=== PATIENT | male | born 1945 | race Caucasian/White ===

== ENCOUNTER 2020-11-29 10:07 | Inpatient (IN) | payer MEDICARE ==
[2020-11-29] MEDS ORDERED: Sodium Chloride 0.9% 1000 ML 1,000 ML IV STA (10:22)
--- NOTE | 2020-11-29 10:27 | ERPHSYRPT ---
- History of Present Illness Time Seen by Provider: 11/29/20 10:21 Patient Subjective Stated Complaint: Pt states "My legs are weak and I spent all day yesterday and all night on the floor." Triage Nursing Assessment: Pt presented alert and oriented X 3, Pt able to speak in clear full sentences pt has pain in his left knee, no swelling noted. Pt resting comfortably on the bed. PT has dirty clothes on, dirt in his sock, dirt coming out from inside his boots. PT smells of body odor. Physician History: 75 years old male is brought in the ER by EMS with chief complaint of multiple falls where his legs gave away because of knee pain and since yesterday having generalized weakness and fatigue. Patient report he was too weak to get up from chair and slowly slid down on the floor and spent all day yesterday and night on the floor because he was not able to get up. Patient reports not hitting his head, no loss of consciousness. He denies any chest pain palpitations or shortness of breath. Denies any abdominal pain nausea or vomiting. Denies any focal numbness tingling or weakness. He has a chronic knee pain which is worsening on the right side but no new trauma to the knee or swelling. Patient blood sugar was 113 and blood pressure 89 systolic on presentation. Allergies/Adverse Reactions: No Known Drug Allergies Allergy (Verified 11/29/20 10:23) Hx Tetanus, Diphtheria Vaccination/Date Given: No Hx Influenza Vaccination/Date Given: No Hx Pneumococcal Vaccination/Date Given: No Immunizations Up to Date: Yes Travel Risk - International Travel Have you traveled outside of the country in past 3 weeks: No - Coronavirus Screening Are you exhibiting any of the following symptoms?: No Close contact with a COVID-19 positive Pt in past 14-21 Days: No - Vaccine Status Have you recieved a Covid-19 vaccination: No - Review of Systems Constitutional: Fatigue, Weakness Eyes: No Symptoms Ears, Nose, & Throat: No Symptoms Respiratory: No Symptoms Cardiac: No Symptoms Abdominal/Gastrointestinal: No Symptoms Genitourinary Symptoms: No Symptoms Musculoskeletal: Joint Pain Skin: No Symptoms Neurological: No Symptoms Psychological: No Symptoms Endocrine: No Symptoms Hematologic/Lymphatic: No Symptoms Immunological/Allergic: No Symptoms - Past Medical History Pertinent Past Medical History: Yes Neurological History: No Pertinent History ENT History: No Pertinent History Cardiac History: Hypertension Respiratory History: No Pertinent History Endocrine Medical History: Hypoglycemia Musculoskeletal History: Arthritis GI Medical History: No Pertinent History History: No Pertinent History Psycho-Social History: No Pertinent History Male Reproductive Disorders: No Pertinent History - Past Surgical History Past Surgical History: Yes Other Surgical History: right knee surgery - Social History Smoking Status: Never smoker Exposure to second hand smoke: No Drug Use: none Patient Lives Alone: Yes - Nursing Vital Signs Nursing Vital Signs: Initial Vital Signs Temperature 97.9 F 11/29/20 10:10 Pulse Rate 98 H 11/29/20 10:10 Respiratory Rate 20 11/29/20 10:10 Blood Pressure 89/71 11/29/20 10:10 O2 Sat by Pulse Oximetry 95 11/29/20 10:10 Pain Scale Pain Intensity 0 - Physical Exam General Appearance: no apparent distress, alert Eye Exam: PERRL/EOMI, eyes nml inspection Ears, Nose, Throat Exam: normal ENT inspection, TMs normal, pharynx normal Neck Exam: normal inspection, non-tender, full range of motion Respiratory Exam: normal breath sounds, lungs clear Cardiovascular Exam: regular rate/rhythm, normal heart sounds Gastrointestinal/Abdomen Exam: soft, normal bowel sounds, No tenderness Back Exam: normal inspection, normal range of motion Extremity Exam: normal inspection, normal range of motion, pelvis stable Neurologic Exam: alert, oriented x 3, cooperative, information officer II-XII nml as tested, normal mood/affect, nml cerebellar function, sensation nml, No motor deficits Skin Exam: normal color SpO2 Interpretation: normal SpO2: 95 O2 Delivery: Room Air - Course EKG Interpreted by Me: RATE (104), Sinus Tach, NORMAL AXIS, LAFB, Right Bundle Branch Block Ordered Tests: Active Orders 24 hr Category Date Time Status [employer] STAT Care 11/29/20 10:23 Active EKG-ER Only STAT Care 11/29/20 10:22 Active IV Insertion STAT Care 11/29/20 10:22 Active CHEST 1 VIEW (PORTABLE) Stat Exams 11/29/20 10:23 Completed BLOOD CULTURE Stat Lab 11/29/20 10:30 Received CBC W DIFF Stat Lab 11/29/20 10:30 Completed CK-Creatinine Phosphokinase Stat Lab 11/29/20 10:30 Completed CMP Stat Lab 11/29/20 10:30 Completed Lactic Acid Stat Lab 11/29/20 10:40 Completed Lactic Acid Stat Lab 11/29/20 12:43 Completed MAGNESIUM Stat Lab 11/29/20 10:30 Completed NT PRO BNP Stat Lab 11/29/20 10:30 Completed TROPONIN Q3H Lab 11/29/20 10:30 Completed TROPONIN Q3H Lab 11/29/20 13:02 Completed TROPONIN Q3H Lab 11/29/20 16:30 Ordered TROPONIN Q3H Lab 11/29/20 19:30 Ordered TROPONIN Q3H Lab 11/29/20 22:30 Ordered UA W/RFX UR CULTURE Stat Lab 11/29/20 12:35 Completed Transfer Order Routine Transfer 11/29/20 Ordered Medication Summary Generic Name Dose Route Start Last Admin Trade Name Sean PRN Reason Stop Dose Admin Remdesivir 200 mg/ Sodium 250 mls @ 125 mls/hr 11/29/20 14:25 Chloride IV 11/29/20 16:24 ONCE ONE Azithromycin 500 mg in 250 mls @ 250 mls/hr 11/29/20 14:27 Zithromax 500 Mg/ 250 Ml Nacl Premix IV 11/29/20 15:26 STAT STA Ceftriaxone Sodium/Dextrose 2 g in 50 mls @ 100 mls/hr 11/29/20 14:27 Rocephin 2 Gm-D5w 50ml Bag IV 11/29/20 14:56 STAT STA Discontinued Medications Generic Name Dose Route Start Last Admin Trade Name Sean PRN Reason Stop Dose Admin Dexamethasone Sodium Phosphate 6 mg 11/29/20 14:26 Decadron 10mg Inj. IV 11/29/20 14:27 STAT ONE Dexamethasone Sodium Phosphate Confirm 11/29/20 14:42 Decadron 10mg Inj. Administered 11/29/20 14:43 Dose 10 mg .ROUTE .STK-MED ONE Sodium Chloride 1,000 mls @ 999 mls/hr 11/29/20 10:22 11/29/20 12:17 Sodium Chloride 0.9% 1000 Ml IV 11/29/20 11:22 Infused .Q1H1M STA Infusion Sodium Chloride Confirm 11/29/20 10:54 Sodium Chloride 0.9% 1000 Ml Administered 11/29/20 10:55 Dose 1,000 mls @ ud .ROUTE .STK-MED ONE Ceftriaxone Sodium/Dextrose Confirm 11/29/20 14:42 Rocephin 2 Gm-D5w 50ml Bag Administered 11/29/20 14:43 Dose 2 g in 50 mls @ ud IV .STK-MED ONE Lab/Rad Data: Laboratory Result Diagrams 11/29/20 10:30 11/29/20 10:30 Laboratory Results 11/29/20 11/29/20 11/29/20 Range/Units 13:12 13:02 12:43 WBC (4.0-10.5) K/mm3 RBC (4.1-5.6) M/mm3 Hgb (12.5-18.0) gm/dl Hct (42-50) % MCV (78-100) fl MCH (26-32) pg MCHC (32-36) g/dl RDW (11.5-14.0) % Plt Count (150-450) K/mm3 MPV (7.5-11.0) fl Gran % (36.0-66.0) % Eos # (Auto) (0-0.5) Absolute Lymphs (auto) (1.0-4.6) Absolute Monos (auto) (0.0-1.3) Lymphocytes % (24.0-44.0) % Monocytes % (0.0-12.0) % Eosinophils % (0.00-5.0) % Basophils % (0.0-0.4) % Absolute Granulocytes (1.4-6.9) Basophils # (0-0.4) Sodium (137-145) mmol/L Potassium (3.5-5.1) mmol/L Chloride (98-107) mmol/L Carbon Dioxide (22-30) mmol/L Anion Gap (5-15) MEQ/L BUN (9-20) mg/dL Creatinine (0.66-1.25) mg/dL Estimated GFR ML/MIN Glucose (74-106) mg/dL Lactic Acid 1.7 (0.4-2.0) Calcium (8.4-10.2) mg/dL Magnesium (1.6-2.3) mg/dL Total Bilirubin (0.2-1.3) mg/dL AST (17-59) U/L ALT (0-50) U/L Alkaline Phosphatase (38-126) U/L Creatine Kinase (55-170) U/L Troponin I 0.020 (0.000-0.034) ng/mL NT-Pro-B Natriuret Pep (0-1800) pg/mL Serum Total Protein (6.3-8.2) g/dL Albumin (3.5-5.0) g/dL Urine Color (YELLOW) Urine Appearance (CLEAR) Urine pH (5-6) Ur Specific [place] (1.005-1.025) Urine Protein (Negative) Urine Ketones (NEGATIVE) Urine Blood (0-5) Bucky/ul Urine Nitrite (NEGATIVE) Urine Bilirubin (NEGATIVE) Urine Urobilinogen (0-1) mg/dL Ur Leukocyte Esterase (NEGATIVE) Urine WBC (Auto) (0-5) /HPF Urine RBC (Auto) (0-2) /HPF U Epithel Cells (Auto) (FEW) /HPF Urine Bacteria (Auto) (NEGATIVE) /HPF Urine Mucus (Auto) (NEGATIVE) /HPF Urine Culture Reflexed (NO) Urine Glucose (NEGATIVE) mg/dL SARS-CoV-2 (PCR) POSITIVE A (NEGATIVE) 11/29/20 11/29/20 11/29/20 Range/Units 12:35 10:40 10:30 WBC (4.0-10.5) K/mm3 RBC (4.1-5.6) M/mm3 Hgb (12.5-18.0) gm/dl Hct (42-50) % MCV (78-100) fl MCH (26-32) pg MCHC (32-36) g/dl RDW (11.5-14.0) % Plt Count (150-450) K/mm3 MPV (7.5-11.0) fl Gran % (36.0-66.0) % Eos # (Auto) (0-0.5) Absolute Lymphs (auto) (1.0-4.6) Absolute Monos (auto) (0.0-1.3) Lymphocytes % (24.0-44.0) % Monocytes % (0.0-12.0) % Eosinophils % (0.00-5.0) % Basophils % (0.0-0.4) % Absolute Granulocytes (1.4-6.9) Basophils # (0-0.4) Sodium (137-145) mmol/L Potassium (3.5-5.1) mmol/L Chloride (98-107) mmol/L Carbon Dioxide (22-30) mmol/L Anion Gap (5-15) MEQ/L BUN (9-20) mg/dL Creatinine (0.66-1.25) mg/dL Estimated GFR ML/MIN Glucose (74-106) mg/dL Lactic Acid 2.4 H (0.4-2.0) Calcium (8.4-10.2) mg/dL Magnesium (1.6-2.3) mg/dL Total Bilirubin (0.2-1.3) mg/dL AST (17-59) U/L ALT (0-50) U/L Alkaline Phosphatase (38-126) U/L Creatine Kinase (55-170) U/L Troponin I 0.021 (0.000-0.034) ng/mL NT-Pro-B Natriuret Pep (0-1800) pg/mL Serum Total Protein (6.3-8.2) g/dL Albumin (3.5-5.0) g/dL Urine Color MARYJANE (YELLOW) Urine Appearance SLIGHTLY CLOUDY (CLEAR) Urine pH 5.0 (5-6) Ur Specific [place] 1.027 (1.005-1.025) Urine Protein 30 (Negative) Urine Ketones SMALL (NEGATIVE) Urine Blood NEGATIVE (0-5) Bucky/ul Urine Nitrite NEGATIVE (NEGATIVE) Urine Bilirubin NEGATIVE (NEGATIVE) Urine Urobilinogen 4 (0-1) mg/dL Ur Leukocyte Esterase NEGATIVE (NEGATIVE) Urine WBC (Auto) NONE (0-5) /HPF Urine RBC (Auto) NONE (0-2) /HPF U Epithel Cells (Auto) NONE (FEW) /HPF Urine Bacteria (Auto) NONE (NEGATIVE) /HPF Urine Mucus (Auto) SLIGHT (NEGATIVE) /HPF Urine Culture Reflexed NO (NO) Urine Glucose NEGATIVE (NEGATIVE) mg/dL SARS-CoV-2 (PCR) (NEGATIVE) 11/29/20 11/29/20 11/29/20 Range/Units 10:30 10:30 10:30 WBC 7.8 (4.0-10.5) K/mm3 RBC 5.34 (4.1-5.6) M/mm3 Hgb 16.2 (12.5-18.0) gm/dl Hct 47.6 (42-50) % MCV 89.1 (78-100) fl MCH 30.3 (26-32) pg MCHC 34.0 (32-36) g/dl RDW 12.8 (11.5-14.0) % Plt Count 149 L (150-450) K/mm3 MPV 10.9 (7.5-11.0) fl Gran % 89.3 H (36.0-66.0) % Eos # (Auto) 0 (0-0.5) Absolute Lymphs (auto) 0.37 L (1.0-4.6) Absolute Monos (auto) 0.47 (0.0-1.3) Lymphocytes % 4.7 L (24.0-44.0) % Monocytes % 6.0 (0.0-12.0) % Eosinophils % 0.0 (0.00-5.0) % Basophils % 0.0 (0.0-0.4) % Absolute Granulocytes 6.95 H (1.4-6.9) Basophils # 0 (0-0.4) Sodium 143 (137-145) mmol/L Potassium 3.6 (3.5-5.1) mmol/L Chloride 104 (98-107) mmol/L Carbon Dioxide 23 (22-30) mmol/L Anion Gap 19.5 H (5-15) MEQ/L BUN 36 H (9-20) mg/dL Creatinine 1.21 (0.66-1.25) mg/dL Estimated GFR > 60.0 ML/MIN Glucose 100 (74-106) mg/dL Lactic Acid (0.4-2.0) Calcium 9.6 (8.4-10.2) mg/dL Magnesium 2.1 (1.6-2.3) mg/dL Total Bilirubin 1.40 H (0.2-1.3) mg/dL AST 82 H (17-59) U/L ALT 30 (0-50) U/L Alkaline Phosphatase 51 (38-126) U/L Creatine Kinase 1002 H (55-170) U/L Troponin I (0.000-0.034) ng/mL NT-Pro-B Natriuret Pep 1210 (0-1800) pg/mL Serum Total Protein 6.7 (6.3-8.2) g/dL Albumin 4.0 (3.5-5.0) g/dL Urine Color (YELLOW) Urine Appearance (CLEAR) Urine pH (5-6) Ur Specific [place] (1.005-1.025) Urine Protein (Negative) Urine Ketones (NEGATIVE) Urine Blood (0-5) Bucky/ul Urine Nitrite (NEGATIVE) Urine Bilirubin (NEGATIVE) Urine Urobilinogen (0-1) mg/dL Ur Leukocyte Esterase (NEGATIVE) Urine WBC (Auto) (0-5) /HPF Urine RBC (Auto) (0-2) /HPF U Epithel Cells (Auto) (FEW) /HPF Urine Bacteria (Auto) (NEGATIVE) /HPF Urine Mucus (Auto) (NEGATIVE) /HPF Urine Culture Reflexed (NO) Urine Glucose (NEGATIVE) mg/dL SARS-CoV-2 (PCR) (NEGATIVE) - Progress Progress: improved Progress Note: 11/29/20 12:47 75 years old is evaluated for generalized weakness and being on the floor for almost 24 hours. Patient was hypotensive on presentation, given a fluid bolus and improved to 119 systolic. He is not tachycardic or tachypneic. Chest x-ray showed left-sided opacity/infiltrative process, started on antibiotics. Normal white count. Has a CK level in 1000's with no acute renal failure. Patient has a lactate of 2.4 but no obvious focus of infection, urinalysis is pending. Discussed with , reviewed history, work-up and patient is accepted for admission. 11/29/20 14:45 Patient was initially admitted to , Covid 19 is positive, given a dose of Decadron and remdesivir. Patient would be admitted to Dr. Mejia. Discussed with : Salvador Will see patient in: hospital (observation) Counseled pt/family regarding: lab results, diagnosis, rad results - Departure Departure Disposition: Observation Clinical Impression: Generalized weakness, COVID-19 virus detected Rhabdomyolysis Qualifiers: Rhabdomyolysis type: non-traumatic Qualified Code(s): M62.82 - Rhabdomyolysis Pneumonia Qualifiers: Pneumonia type: due to unspecified organism Laterality: left Lung location: unspecified part of lung Qualified Code(s): J18.9 - Pneumonia, unspecified organism Condition: Stable Critical Care Time: No Referrals: EVERARDO SULTANA [Primary Care Provider] -
[2020-11-29 10:51] LABS: Absolute Neutrophil Ct (ANC) 6.95 (1.4-6.9); Basophil (Absolute #) 0 (0-0.4); Eosinophil (Absolute #) 0 (0-0.5); Hematocrit 47.6 % (42-50); Hemoglobin 16.2 gm/dl (12.5-18.0); Lymphocyte (Absolute #) 0.37 (1.0-4.6); Lymphocytes % 4.7 % (24.0-44.0); Mean Cell Volume 89.1 fl (78-100); Mean Corpuscular Hemoglobin 30.3 pg (26-32); Mean Platelet Volume 10.9 fl (7.5-11.0); Monocyte (Absolute #) 0.47 (0.0-1.3); Neutrophil % 89.3 % (36.0-66.0); Platelet Count 149 K/mm3 (150-450); Red Blood Count 5.34 M/mm3 (4.1-5.6); Red Cell Distribution Width 12.8 % (11.5-14.0); White Blood Count 7.8 K/mm3 (4.0-10.5)
[2020-11-29] MEDS ORDERED: Sodium Chloride 0.9% 1000 ML 1,000 ML ONE (10:54)
[2020-11-29 11:16] LABS: ALKALINE PHOSPHATASE 51 U/L (38-126); ANION GAP 19.5 MEQ/L (5-15); BLOOD UREA NITROGEN 36 mg/dL (9-20); CHLORIDE 104 mmol/L (98-107); CK-Creatinine Phosphokinase 1002 U/L (55-170); Calcium 9.6 mg/dL (8.4-10.2); Carbon Dioxide 23 mmol/L (22-30); Creatinine 1 1.21 mg/dL (0.66-1.25); EST GLOMERULAR FILTRATION RATE > 60.0 ML/MIN; Glucose 100 mg/dL (74-106); NT PRO BNP 1210 pg/mL (0-1800); Potassium 3.6 mmol/L (3.5-5.1); SGOT/AST 82 U/L (17-59); SGPT/ALT 30 U/L (0-50); SODIUM 143 mmol/L (137-145); Total Protein 6.7 g/dL (6.3-8.2)
--- NOTE | 2020-11-29 12:55 | XRAY ---
Indication: Unwitnessed fall. Found on floor. Comparison: December 15, 2007. Portable chest underinflated with new left lung patchy interstitial alveolar opacities. Remaining heart and right lung unremarkable. Bony thorax intact again with mild osteopenia and degenerative changes.
[2020-11-29 13:36] LABS: Appearance SLIGHTLY CLOUDY (CLEAR); Bilirubin NEGATIVE (NEGATIVE); Blood NEGATIVE Ery/ul (0-5); Glucose NEGATIVE (NEGATIVE); Ketones SMALL (NEGATIVE); Leukocyte Esterase NEGATIVE (NEGATIVE); Mucus SLIGHT /HPF (NEGATIVE); Nitrite NEGATIVE (NEGATIVE); Protein,Urine Dip 30 (Negative); Specific Gravity 1.027 (1.005-1.025); Urobilinogen 4 mg/dL (0-1)
[2020-11-29] MEDS ORDERED: REMDESIVIR 200 MG in Sodium Chloride 0.9% 250 ML 250 ML IV ONE ×2 (14:25→17:00)
[2020-11-29] MEDS ORDERED: DECADRON 10MG INJ. IV ONE (14:26)
[2020-11-29] MEDS ORDERED: ROCEPHIN 2 Gm-D5w 50ML BAG** 2 G/50 ML IVPB IV STA (14:27)
[2020-11-29] MEDS ORDERED: Zithromax 500 MG/ 250 ML NaCl Premix 500 MG/250 ML IVPB IV STA (14:27)
[2020-11-29] MEDS ORDERED: DECADRON 10MG INJ. ONE (14:42)
[2020-11-29] MEDS ORDERED: ROCEPHIN 2 Gm-D5w 50ML BAG** 2 G/50 ML IVPB IV ONE (14:42)
[2020-11-29 16:37] LABS: Slide Review 1 YES
[2020-11-29] MEDS: PROTONIX 40 MG IV IV SCH (17:31)
[2020-11-29] MEDS: Sodium Chloride 0.9% 1000 ML 1,000 ML IV SCH (17:32)
--- NOTE | 2020-11-29 18:36 | PCM.HP ---
History of Present Illness - Chief Complaint Chief Complaint: fall at home today History of Present Illness: is a 75 year old male.brought in the ER by EMS with chief complaint of multiple falls where his legs gave away because of knee pain and since yesterday having generalized weakness and fatigue. Patient report he was too weak to get up from chair and slowly slid down on the floor and spent all day yesterday and night on the floor because he was not able to get up. Patient reports not hitting his head, no loss of consciousness. He denies any chest pain palpitations or shortness of breath. Denies any abdominal pain nausea or vomiting. Denies any focal numbness tingling or weakness. He has a chronic knee pain which is worsening on the right side but no new trauma to the knee or swelling. Patient blood sugar was 113 and blood pressure 89 systolic on presentation. - Review of Systems Constitutional: Fatigue, Lethargy, Weakness, No Fever, No Chills Eyes: No Symptoms Ears, Nose, & Throat: No Symptoms Respiratory: No Cough, No Short Of Breath Cardiac: No Chest Pain, No Edema, No Syncope Abdominal/Gastrointestinal: No Abdominal Pain, No Nausea, No Vomiting, No Diarrhea Genitourinary Symptoms: No Dysuria Musculoskeletal: No Back Pain, No Neck Pain Skin: No Rash Neurological: No Dizziness, No Focal Weakness, No Sensory Changes Psychological: No Symptoms Endocrine: No Symptoms Hematologic/Lymphatic: Other (multiple bruises due to fall), No No Symptoms Immunological/Allergic: No Symptoms Medications & Allergies Home Medications: Home Medication List Chlorthalidone 25 mg PO DAILY 11/29/20 [History Confirmed 11/29/20] Lisinopril 5 mg [Zestril 5 MG] 5 mg PO DAILY 11/29/20 [History Confirmed 11/29/20] Potassium Chloride 10 Meq Tab* [Klor Con 10 MEQ] 20 meq PO DAILY 11/29/20 [History Confirmed 11/29/20] Simvastatin 20Mg [Zocor 20Mg] 20 mg PO DAILY 11/29/20 [History Confirmed 11/29/20] Tamsulosin HCl 0.4 mg [Flomax 0.4 MG] 0.4 mg PO DAILY 11/29/20 [History Confirmed 11/29/20] Allergies/Adverse Reactions: Allergies Allergy/AdvReac Type Severity Reaction Status Date / Time No Known Drug Allergies Allergy Verified 11/29/20 10:23 - Past Medical History Past Medical History: Yes Neurological History: No Pertinent History ENT History: No Pertinent History Cardiac History: Hypertension Respiratory History: No Pertinent History Endocrine Medical History: Hypoglycemia Musculoskelatal History: Arthritis GI Medical History: No Pertinent History History: No Pertinent History Pyscho-Social History: No Pertinent History Male Reproductive Disorders: No Pertinent History - Past Surgical History Past Surgical History: Yes Other Surgical History: right knee surgery - Social History Smoking Status: Never smoker Exposure to second hand smoke: No Alcohol: None Drug Use: none - Physical Exam Vital Signs: Vital Signs - 24 hr Temp Pulse Resp BP Pulse Ox 11/29/20 18:00 102 H 20 96 11/29/20 16:45 96.7 F 92 H 24 101/63 95 11/29/20 15:55 95 11/29/20 15:08 83 26 H 101/69 97 11/29/20 14:46 95 11/29/20 14:32 98 H 25 H 96/62 98 11/29/20 13:36 97.9 F 77 20 94/71 98 11/29/20 12:15 87 20 91/67 98 11/29/20 11:10 87 22 109/69 97 11/29/20 10:10 97.9 F 98 H 20 89/71 95 General Appearance: no apparent distress, alert Neurologic Exam: alert, oriented x 3, cooperative, normal mood/affect, nml cerebellar function, nml station & gait, sensation nml, No motor deficits Eye Exam: PERRL/EOMI, eyes nml inspection Ears, Nose, Throat Exam: normal ENT inspection, TMs normal, pharynx normal, moist mucous membranes Neck Exam: normal inspection, non-tender, supple, full range of motion Respiratory Exam: normal breath sounds, lungs clear, No respiratory distress Cardiovascular Exam: regular rate/rhythm, normal heart sounds, normal peripheral pulses Gastrointestinal/Abdomen Exam: soft, normal bowel sounds, No tenderness, No mass Back Exam: normal inspection, normal range of motion, No CVA tenderness, No vertebral tenderness Extremity Exam: normal inspection, normal range of motion, pelvis stable, contusions Skin Exam: normal color, warm, dry, ecchymosis, No rash Lymphatic Exam: No adenopathy Results - Labs Lab/Micro Results: Lab Results-Last 24 Hours 11/29/20 11/29/20 11/29/20 Range/Units 10:30 10:30 10:30 WBC 7.8 (4.0-10.5) K/mm3 RBC 5.34 (4.1-5.6) M/mm3 Hgb 16.2 (12.5-18.0) gm/dl Hct 47.6 (42-50) % MCV 89.1 (78-100) fl MCH 30.3 (26-32) pg MCHC 34.0 (32-36) g/dl RDW 12.8 (11.5-14.0) % Plt Count 149 L (150-450) K/mm3 MPV 10.9 (7.5-11.0) fl Gran % 89.3 H (36.0-66.0) % Eos # (Auto) 0 (0-0.5) Absolute Lymphs (auto) 0.37 L (1.0-4.6) Absolute Monos (auto) 0.47 (0.0-1.3) Lymphocytes % 4.7 L (24.0-44.0) % Monocytes % 6.0 (0.0-12.0) % Eosinophils % 0.0 (0.00-5.0) % Basophils % 0.0 (0.0-0.4) % Absolute Granulocytes 6.95 H (1.4-6.9) Basophils # 0 (0-0.4) Sodium 143 (137-145) mmol/L Potassium 3.6 (3.5-5.1) mmol/L Chloride 104 (98-107) mmol/L Carbon Dioxide 23 (22-30) mmol/L Anion Gap 19.5 H (5-15) MEQ/L BUN 36 H (9-20) mg/dL Creatinine 1.21 (0.66-1.25) mg/dL Estimated GFR > 60.0 ML/MIN Glucose 100 (74-106) mg/dL Lactic Acid (0.4-2.0) Calcium 9.6 (8.4-10.2) mg/dL Magnesium 2.1 (1.6-2.3) mg/dL Total Bilirubin 1.40 H (0.2-1.3) mg/dL AST 82 H (17-59) U/L ALT 30 (0-50) U/L Alkaline Phosphatase 51 (38-126) U/L Creatine Kinase 1002 H (55-170) U/L Troponin I (0.000-0.034) ng/mL NT-Pro-B Natriuret Pep 1210 (0-1800) pg/mL Serum Total Protein 6.7 (6.3-8.2) g/dL Albumin 4.0 (3.5-5.0) g/dL Urine Color (YELLOW) Urine Appearance (CLEAR) Urine pH (5-6) Ur Specific [place] (1.005-1.025) Urine Protein (Negative) Urine Ketones (NEGATIVE) Urine Blood (0-5) Bucky/ul Urine Nitrite (NEGATIVE) Urine Bilirubin (NEGATIVE) Urine Urobilinogen (0-1) mg/dL Ur Leukocyte Esterase (NEGATIVE) Urine WBC (Auto) (0-5) /HPF Urine RBC (Auto) (0-2) /HPF U Epithel Cells (Auto) (FEW) /HPF Urine Bacteria (Auto) (NEGATIVE) /HPF Urine Mucus (Auto) (NEGATIVE) /HPF Urine Culture Reflexed (NO) Urine Glucose (NEGATIVE) mg/dL SARS-CoV-2 (PCR) (NEGATIVE) Slides for Path Review YES 11/29/20 11/29/20 11/29/20 Range/Units 10:30 10:40 12:35 WBC (4.0-10.5) K/mm3 RBC (4.1-5.6) M/mm3 Hgb (12.5-18.0) gm/dl Hct (42-50) % MCV (78-100) fl MCH (26-32) pg MCHC (32-36) g/dl RDW (11.5-14.0) % Plt Count (150-450) K/mm3 MPV (7.5-11.0) fl Gran % (36.0-66.0) % Eos # (Auto) (0-0.5) Absolute Lymphs (auto) (1.0-4.6) Absolute Monos (auto) (0.0-1.3) Lymphocytes % (24.0-44.0) % Monocytes % (0.0-12.0) % Eosinophils % (0.00-5.0) % Basophils % (0.0-0.4) % Absolute Granulocytes (1.4-6.9) Basophils # (0-0.4) Sodium (137-145) mmol/L Potassium (3.5-5.1) mmol/L Chloride (98-107) mmol/L Carbon Dioxide (22-30) mmol/L Anion Gap (5-15) MEQ/L BUN (9-20) mg/dL Creatinine (0.66-1.25) mg/dL Estimated GFR ML/MIN Glucose (74-106) mg/dL Lactic Acid 2.4 H (0.4-2.0) Calcium (8.4-10.2) mg/dL Magnesium (1.6-2.3) mg/dL Total Bilirubin (0.2-1.3) mg/dL AST (17-59) U/L ALT (0-50) U/L Alkaline Phosphatase (38-126) U/L Creatine Kinase (55-170) U/L Troponin I 0.021 (0.000-0.034) ng/mL NT-Pro-B Natriuret Pep (0-1800) pg/mL Serum Total Protein (6.3-8.2) g/dL Albumin (3.5-5.0) g/dL Urine Color MARYJANE (YELLOW) Urine Appearance SLIGHTLY CLOUDY (CLEAR) Urine pH 5.0 (5-6) Ur Specific [place] 1.027 (1.005-1.025) Urine Protein 30 (Negative) Urine Ketones SMALL (NEGATIVE) Urine Blood NEGATIVE (0-5) Bucky/ul Urine Nitrite NEGATIVE (NEGATIVE) Urine Bilirubin NEGATIVE (NEGATIVE) Urine Urobilinogen 4 (0-1) mg/dL Ur Leukocyte Esterase NEGATIVE (NEGATIVE) Urine WBC (Auto) NONE (0-5) /HPF Urine RBC (Auto) NONE (0-2) /HPF U Epithel Cells (Auto) NONE (FEW) /HPF Urine Bacteria (Auto) NONE (NEGATIVE) /HPF Urine Mucus (Auto) SLIGHT (NEGATIVE) /HPF Urine Culture Reflexed NO (NO) Urine Glucose NEGATIVE (NEGATIVE) mg/dL SARS-CoV-2 (PCR) (NEGATIVE) Slides for Path Review 11/29/20 11/29/20 11/29/20 Range/Units 12:43 13:02 13:12 WBC (4.0-10.5) K/mm3 RBC (4.1-5.6) M/mm3 Hgb (12.5-18.0) gm/dl Hct (42-50) % MCV (78-100) fl MCH (26-32) pg MCHC (32-36) g/dl RDW (11.5-14.0) % Plt Count (150-450) K/mm3 MPV (7.5-11.0) fl Gran % (36.0-66.0) % Eos # (Auto) (0-0.5) Absolute Lymphs (auto) (1.0-4.6) Absolute Monos (auto) (0.0-1.3) Lymphocytes % (24.0-44.0) % Monocytes % (0.0-12.0) % Eosinophils % (0.00-5.0) % Basophils % (0.0-0.4) % Absolute Granulocytes (1.4-6.9) Basophils # (0-0.4) Sodium (137-145) mmol/L Potassium (3.5-5.1) mmol/L Chloride (98-107) mmol/L Carbon Dioxide (22-30) mmol/L Anion Gap (5-15) MEQ/L BUN (9-20) mg/dL Creatinine (0.66-1.25) mg/dL Estimated GFR ML/MIN Glucose (74-106) mg/dL Lactic Acid 1.7 (0.4-2.0) Calcium (8.4-10.2) mg/dL Magnesium (1.6-2.3) mg/dL Total Bilirubin (0.2-1.3) mg/dL AST (17-59) U/L ALT (0-50) U/L Alkaline Phosphatase (38-126) U/L Creatine Kinase (55-170) U/L Troponin I 0.020 (0.000-0.034) ng/mL NT-Pro-B Natriuret Pep (0-1800) pg/mL Serum Total Protein (6.3-8.2) g/dL Albumin (3.5-5.0) g/dL Urine Color (YELLOW) Urine Appearance (CLEAR) Urine pH (5-6) Ur Specific [place] (1.005-1.025) Urine Protein (Negative) Urine Ketones (NEGATIVE) Urine Blood (0-5) Bucky/ul Urine Nitrite (NEGATIVE) Urine Bilirubin (NEGATIVE) Urine Urobilinogen (0-1) mg/dL Ur Leukocyte Esterase (NEGATIVE) Urine WBC (Auto) (0-5) /HPF Urine RBC (Auto) (0-2) /HPF U Epithel Cells (Auto) (FEW) /HPF Urine Bacteria (Auto) (NEGATIVE) /HPF Urine Mucus (Auto) (NEGATIVE) /HPF Urine Culture Reflexed (NO) Urine Glucose (NEGATIVE) mg/dL SARS-CoV-2 (PCR) POSITIVE A (NEGATIVE) Slides for Path Review 11/29/20 Range/Units 16:20 WBC (4.0-10.5) K/mm3 RBC (4.1-5.6) M/mm3 Hgb (12.5-18.0) gm/dl Hct (42-50) % MCV (78-100) fl MCH (26-32) pg MCHC (32-36) g/dl RDW (11.5-14.0) % Plt Count (150-450) K/mm3 MPV (7.5-11.0) fl Gran % (36.0-66.0) % Eos # (Auto) (0-0.5) Absolute Lymphs (auto) (1.0-4.6) Absolute Monos (auto) (0.0-1.3) Lymphocytes % (24.0-44.0) % Monocytes % (0.0-12.0) % Eosinophils % (0.00-5.0) % Basophils % (0.0-0.4) % Absolute Granulocytes (1.4-6.9) Basophils # (0-0.4) Sodium (137-145) mmol/L Potassium (3.5-5.1) mmol/L Chloride (98-107) mmol/L Carbon Dioxide (22-30) mmol/L Anion Gap (5-15) MEQ/L BUN (9-20) mg/dL Creatinine (0.66-1.25) mg/dL Estimated GFR ML/MIN Glucose (74-106) mg/dL Lactic Acid (0.4-2.0) Calcium (8.4-10.2) mg/dL Magnesium (1.6-2.3) mg/dL Total Bilirubin (0.2-1.3) mg/dL AST (17-59) U/L ALT (0-50) U/L Alkaline Phosphatase (38-126) U/L Creatine Kinase (55-170) U/L Troponin I 0.018 (0.000-0.034) ng/mL NT-Pro-B Natriuret Pep (0-1800) pg/mL Serum Total Protein (6.3-8.2) g/dL Albumin (3.5-5.0) g/dL Urine Color (YELLOW) Urine Appearance (CLEAR) Urine pH (5-6) Ur Specific [place] (1.005-1.025) Urine Protein (Negative) Urine Ketones (NEGATIVE) Urine Blood (0-5) Bucky/ul Urine Nitrite (NEGATIVE) Urine Bilirubin (NEGATIVE) Urine Urobilinogen (0-1) mg/dL Ur Leukocyte Esterase (NEGATIVE) Urine WBC (Auto) (0-5) /HPF Urine RBC (Auto) (0-2) /HPF U Epithel Cells (Auto) (FEW) /HPF Urine Bacteria (Auto) (NEGATIVE) /HPF Urine Mucus (Auto) (NEGATIVE) /HPF Urine Culture Reflexed (NO) Urine Glucose (NEGATIVE) mg/dL SARS-CoV-2 (PCR) (NEGATIVE) Slides for Path Review - Radiology Impressions Radiology Exams & Impressions: Radiology Procedures Category Date Time Status CHEST 1 VIEW (PORTABLE) Stat Exams 11/29/20 10:23 Completed Assessment/Plan (1) Rhabdomyolysis Current Visit: Yes Status: Acute Qualifiers: Rhabdomyolysis type: non-traumatic Qualified Code(s): M62.82 - Rhabdomyolysis Code(s): M62.82 - RHABDOMYOLYSIS (2) COVID-19 virus detected Current Visit: Yes Status: Acute Code(s): U07.1 - COVID-19 (3) Generalized weakness Current Visit: Yes Status: Acute Code(s): R53.1 - WEAKNESS (4) Pneumonia Current Visit: Yes Status: Acute Qualifiers: Pneumonia type: due to unspecified organism Laterality: left Lung location: unspecified part of lung Qualified Code(s): J18.9 - Pneumonia, unspecified organism Assessment & Plan: Chief Complaint Diagnosis fall at home today Allergies Allergy/AdvReac Type Severity Reaction Status Date / Time No Known Drug Allergies Allergy Verified 11/29/20 10:23 Vital Signs (Last 24 hours) Temp Pulse Resp BP Pulse Ox 11/29/20 18:00 102 H 20 96 11/29/20 16:45 96.7 F 92 H 24 101/63 95 11/29/20 15:55 95 11/29/20 15:08 83 26 H 101/69 97 11/29/20 14:46 95 11/29/20 14:32 98 H 25 H 96/62 98 11/29/20 13:36 97.9 F 77 20 94/71 98 11/29/20 12:15 87 20 91/67 98 11/29/20 11:10 87 22 109/69 97 11/29/20 10:10 97.9 F 98 H 20 89/71 95 Home Medications Medication Instructions Recorded Confirmed Last Taken Type Chlorthalidone 25 mg PO DAILY 11/29/20 11/29/20 11/28/20 History Lisinopril 5 mg [Zestril 5 5 mg PO DAILY 11/29/20 11/29/20 11/28/20 History MG] Potassium Chloride 10 Meq Tab* 20 meq PO DAILY 11/29/20 11/29/20 11/28/20 History [Klor Con 10 MEQ] Simvastatin 20Mg [Zocor 20Mg] 20 mg PO DAILY 11/29/20 11/29/20 11/28/20 History Tamsulosin HCl 0.4 mg [Flomax 0.4 mg PO DAILY 11/29/20 11/29/20 11/28/20 History 0.4 MG] Current Medications Generic Name Dose Route Start Last Admin Trade Name Freq PRN Reason Stop Dose Admin Acetaminophen 650 mg 11/29/20 15:43 Tylenol 325 Mg PO 12/29/20 15:42 Q4H PRN PRN PAIN AND/OR FEVER Hydrochlorothiazide 25 mg 11/30/20 10:00 Hydrodiuril 25 Mg PO 12/30/20 09:59 DAILY G[place] Sodium Chloride 1,000 mls @ 125 mls/hr 11/29/20 15:43 11/29/20 17:32 Sodium Chloride 0.9% 1000 Ml IV 12/29/20 15:42 125 mls/hr .Q8H [place] Administration Remdesivir 200 mg/ Sodium 250 mls @ 125 mls/hr 11/29/20 17:00 11/29/20 17:29 Chloride IV 11/29/20 18:59 125 mls/hr ONCE ONE Administration Remdesivir 100 mg/ Sodium 100 mls @ 100 mls/hr 11/30/20 14:00 Chloride IV 12/03/20 14:59 Q24H [place] Lisinopril 5 mg 11/30/20 10:00 Zestril 5 Mg PO 12/30/20 09:59 DAILY [place] Methylprednisolone Sodium Succinate 40 mg 11/30/20 18:30 Solu-Medrol 40 Mg IV 12/30/20 18:29 Q8H [place] Pantoprazole Sodium 40 mg 11/29/20 16:00 11/29/20 17:31 Protonix 40 Mg Iv IV 12/29/20 15:59 40 mg Q24H10 [place] Administration Potassium Chloride 20 meq 11/30/20 10:00 Klor Con 10 Meq PO 12/30/20 09:59 DAILY [place] Simvastatin 20 mg 11/30/20 10:00 Zocor 20mg PO 12/30/20 09:59 DAILY [place] Tamsulosin HCl 0.4 mg 11/30/20 10:00 Flomax 0.4 Mg PO 12/30/20 09:59 DAILY [place] Discontinued Medications Generic Name Dose Route Start Last Admin Trade Name Freq PRN Reason Stop Dose Admin Dexamethasone Sodium Phosphate 6 mg 11/29/20 14:26 11/29/20 14:45 Decadron 10mg Inj. IV 11/29/20 14:27 6 mg STAT ONE Administration Dexamethasone Sodium Phosphate Confirm 11/29/20 14:42 Decadron 10mg Inj. Administered 11/29/20 14:43 Dose 10 mg .ROUTE .STK-MED ONE Sodium Chloride 1,000 mls @ 999 mls/hr 11/29/20 10:22 11/29/20 12:17 Sodium Chloride 0.9% 1000 Ml IV 11/29/20 11:22 Infused .Q1H1M STA Infusion Sodium Chloride Confirm 11/29/20 10:54 Sodium Chloride 0.9% 1000 Ml Administered 11/29/20 10:55 Dose 1,000 mls @ ud .ROUTE .STK-MED ONE Remdesivir 200 mg/ Sodium 250 mls @ 125 mls/hr 11/29/20 14:25 11/29/20 18:26 Chloride IV 11/29/20 16:24 Not Given ONCE ONE Azithromycin 500 mg in 250 mls @ 250 mls/hr 11/29/20 14:27 11/29/20 18:26 Zithromax 500 Mg/ 250 Ml Nacl Premix IV 11/29/20 15:26 Not Given STAT STA Ceftriaxone Sodium/Dextrose 2 g in 50 mls @ 100 mls/hr 11/29/20 14:27 11/29/20 15:21 Rocephin 2 Gm-D5w 50ml Bag IV 11/29/20 14:56 Infused STAT STA Infusion Ceftriaxone Sodium/Dextrose Confirm 11/29/20 14:42 Rocephin 2 Gm-D5w 50ml Bag Administered 11/29/20 14:43 Dose 2 g in 50 mls @ ud IV .STK-MED ONE Methylprednisolone Sodium Succinate 40 mg 11/30/20 18:16 Solu-Medrol 40 Mg IV 11/30/20 18:17 STAT ONE Intake & Output (Last 24 hours) 11/27/20 11/28/20 11/29/20 11/30/20 11:59 11:59 11:59 11:59 Intake Total 400 Output Total 100 Balance 300 Weight 96.9 kg 97 kg Microbiology Results (Last 24 hours) 11/29/20 10:30 Blood Blood Culture Gram Stain - Pending 11/29/20 10:30 Blood Blood Culture - Pending 11/29/20 10:30 Blood Blood Culture Gram Stain - Pending 11/29/20 10:30 Blood Blood Culture - Pending Laboratory Results (Last 24 hours) 11/29/20 11/29/20 11/29/20 16:20 13:12 13:02 WBC RBC Hgb Hct MCV MCH MCHC RDW Plt Count MPV Gran % Eos # (Auto) Absolute Lymphs (auto) Absolute Monos (auto) Lymphocytes % Monocytes % Eosinophils % Basophils % Absolute Granulocytes Basophils # Sodium Potassium Chloride Carbon Dioxide Anion Gap BUN Creatinine Estimated GFR Glucose Lactic Acid Calcium Magnesium Total Bilirubin AST ALT Alkaline Phosphatase Creatine Kinase Troponin I 0.018 0.020 NT-Pro-B Natriuret Pep Serum Total Protein Albumin Urine Color Urine Appearance Urine pH Ur Specific [place] Urine Protein Urine Ketones Urine Blood Urine Nitrite Urine Bilirubin Urine Urobilinogen Ur Leukocyte Esterase Urine WBC (Auto) Urine RBC (Auto) U Epithel Cells (Auto) Urine Bacteria (Auto) Urine Mucus (Auto) Urine Culture Reflexed Urine Glucose SARS-CoV-2 (PCR) POSITIVE A Slides for Path Review 11/29/20 11/29/20 11/29/20 12:43 12:35 10:40 WBC RBC Hgb Hct MCV MCH MCHC RDW Plt Count MPV Gran % Eos # (Auto) Absolute Lymphs (auto) Absolute Monos (auto) Lymphocytes % Monocytes % Eosinophils % Basophils % Absolute Granulocytes Basophils # Sodium Potassium Chloride Carbon Dioxide Anion Gap BUN Creatinine Estimated GFR Glucose Lactic Acid 1.7 2.4 H Calcium Magnesium Total Bilirubin AST ALT Alkaline Phosphatase Creatine Kinase Troponin I NT-Pro-B Natriuret Pep Serum Total Protein Albumin Urine Color MARYJANE Urine Appearance SLIGHTLY CLOUDY Urine pH 5.0 Ur Specific [place] 1.027 Urine Protein 30 Urine Ketones SMALL Urine Blood NEGATIVE Urine Nitrite NEGATIVE Urine Bilirubin NEGATIVE Urine Urobilinogen 4 Ur Leukocyte Esterase NEGATIVE Urine WBC (Auto) NONE Urine RBC (Auto) NONE U Epithel Cells (Auto) NONE Urine Bacteria (Auto) NONE Urine Mucus (Auto) SLIGHT Urine Culture Reflexed NO Urine Glucose NEGATIVE SARS-CoV-2 (PCR) Slides for Path Review 11/29/20 11/29/20 11/29/20 10:30 10:30 10:30 WBC RBC Hgb Hct MCV MCH MCHC RDW Plt Count MPV Gran % Eos # (Auto) Absolute Lymphs (auto) Absolute Monos (auto) Lymphocytes % Monocytes % Eosinophils % Basophils % Absolute Granulocytes Basophils # Sodium 143 Potassium 3.6 Chloride 104 Carbon Dioxide 23 Anion Gap 19.5 H BUN 36 H Creatinine 1.21 Estimated GFR > 60.0 Glucose 100 Lactic Acid Calcium 9.6 Magnesium 2.1 Total Bilirubin 1.40 H AST 82 H ALT 30 Alkaline Phosphatase 51 Creatine Kinase 1002 H Troponin I 0.021 NT-Pro-B Natriuret Pep 1210 Serum Total Protein 6.7 Albumin 4.0 Urine Color Urine Appearance Urine pH Ur Specific [place] Urine Protein Urine Ketones Urine Blood Urine Nitrite Urine Bilirubin Urine Urobilinogen Ur Leukocyte Esterase Urine WBC (Auto) Urine RBC (Auto) U Epithel Cells (Auto) Urine Bacteria (Auto) Urine Mucus (Auto) Urine Culture Reflexed Urine Glucose SARS-CoV-2 (PCR) Slides for Path Review 11/29/20 10:30 WBC 7.8 RBC 5.34 Hgb 16.2 Hct 47.6 MCV 89.1 MCH 30.3 MCHC 34.0 RDW 12.8 Plt Count 149 L MPV 10.9 Gran % 89.3 H Eos # (Auto) 0 Absolute Lymphs (auto) 0.37 L Absolute Monos (auto) 0.47 Lymphocytes % 4.7 L Monocytes % 6.0 Eosinophils % 0.0 Basophils % 0.0 Absolute Granulocytes 6.95 H Basophils # 0 Sodium Potassium Chloride Carbon Dioxide Anion Gap BUN Creatinine Estimated GFR Glucose Lactic Acid Calcium Magnesium Total Bilirubin AST ALT Alkaline Phosphatase Creatine Kinase Troponin I NT-Pro-B Natriuret Pep Serum Total Protein Albumin Urine Color Urine Appearance Urine pH Ur Specific [place] Urine Protein Urine Ketones Urine Blood Urine Nitrite Urine Bilirubin Urine Urobilinogen Ur Leukocyte Esterase Urine WBC (Auto) Urine RBC (Auto) U Epithel Cells (Auto) Urine Bacteria (Auto) Urine Mucus (Auto) Urine Culture Reflexed Urine Glucose SARS-CoV-2 (PCR) Slides for Path Review YES Orders (Last 24 hours) Category Date Time Status Bedrest ROUTINE Activity 11/29/20 15:43 Active Up With Assistance ROUTINE Activity 11/29/20 15:43 Active Regulatory Specialist STAT Care 11/29/20 10:23 Completed EKG-ER Only STAT Care 11/29/20 10:22 Completed Fall Protocol Q1H Care 11/29/20 15:43 Active IV Care Q6H Care 11/29/20 15:43 Active IV Insertion STAT Care 11/29/20 10:22 Completed Isolation, Initiate & Maintain Q12H Care 11/29/20 15:[address] in Observation ROUTINE Care 11/29/20 15:43 [address] [place] ROUTINE Care 11/29/20 15:43 Active Telemetry q6h Care 11/29/20 15:30 Active Weight,Daily 0600 Care 11/29/20 15:43 Active Heart-Healthy Diet Diet 11/29/20 Dinner Active CHEST 1 VIEW (PORTABLE) Stat Exams 11/29/20 10:23 Completed BLOOD CULTURE Stat Lab 11/29/20 10:30 Received CBC W DIFF AM.LAB Lab 11/30/20 04:00 Ordered CBC W DIFF Stat Lab 11/29/20 10:30 Completed CK-Creatinine Phosphokinase Stat Lab 11/29/20 10:30 Completed CMP AM.LAB Lab 11/30/20 04:00 Ordered CMP Stat Lab 11/29/20 10:30 Completed D-DIMER QUANTITATIVE AM.LAB Lab 11/30/20 04:00 Ordered D-DIMER QUANTITATIVE AM.LAB Lab 12/01/20 04:00 Ordered Lactic Acid Stat Lab 11/29/20 10:40 Completed Lactic Acid Stat Lab 11/29/20 12:43 Completed MAGNESIUM Stat Lab 11/29/20 10:30 Completed NT PRO BNP Stat Lab 11/29/20 10:30 Completed PT INR [PROTIME WITH INR] AM.LAB Lab 11/30/20 04:00 Ordered PT INR [PROTIME WITH INR] AM.LAB Lab 12/01/20 04:00 Ordered SARS-CoV-2 Xpert Express Routine Lab 11/29/20 13:12 Completed TROPONIN Q3H Lab 11/29/20 10:30 Completed TROPONIN Q3H Lab 11/29/20 13:02 Completed TROPONIN Q3H Lab 11/29/20 16:20 Completed TROPONIN Q3H Lab 11/29/20 19:30 Ordered TROPONIN Q3H Lab 11/29/20 22:30 Ordered UA W/RFX UR CULTURE Stat Lab 11/29/20 12:35 Completed Acetaminophen 325 mg [Tylenol 325 mg] Med 11/29/20 15:43 Active 650 mg PO Q4H PRN PRN Azithromycin 500 mg/250 ml [Zithromax 500 MG/ 250 ML Med 11/29/20 14:27 Discontinued NaCl Premix] 500 mg in 250 ml IV STAT Ceftriaxone 2 GM/50 ML PREMIX* [ROCEPHIN 2 Gm-D5w 50ML Med 11/29/20 14:27 Discontinued BAG] 2 g in 50 ml IV STAT Ceftriaxone 2 GM/50 ML PREMIX* [ROCEPHIN 2 Gm-D5w 50ML Med 11/29/20 14:42 Discontinued BAG] 2 g in 50 ml IV UD Dexamethasone Sod Phosphate [Decadron 10Mg Inj.] Med 11/29/20 14:42 Discontinued 10 mg .ROUTE .STK-MED ONE Dexamethasone Sod Phosphate [Decadron 10Mg Inj.] Med 11/29/20 14:26 Discontinued 6 mg IV STAT ONE Hydrochlorothiazide 25 mg [hydroDIURIL 25 MG] Med 11/30/20 10:00 Active 25 mg PO DAILY Lisinopril 5 mg [Zestril 5 MG] Med 11/30/20 10:00 Active 5 mg PO DAILY Methylprednisolone Sod Suc 40M [solu-MEDROL 40 MG] Med 11/30/20 18:30 Ordered 40 mg IV Q8H Methylprednisolone Sod Suc 40M [solu-MEDROL 40 MG] Med 11/30/20 18:16 Discontinued 40 mg IV STAT ONE NaCl 0.9% 1000 ml [Sodium Chloride 0.9% 1000 ML] 1,000 Med 11/29/20 10:54 Discontinued ml .ROUTE UD NaCl 0.9% 1000 ml [Sodium Chloride 0.9% 1000 ML] 1,000 Med 11/29/20 15:43 Active ml IV 125 mls/hr NaCl 0.9% 1000 ml [Sodium Chloride 0.9% 1000 ML] 1,000 Med 11/29/20 10:22 Discontinued ml IV 999 mls/hr Pantoprazole 40 mg [Protonix 40 mg IV] Med 11/29/20 16:00 Active 40 mg IV Q24H10 Potassium Chloride 10 Meq Tab* [Klor Con 10 MEQ] Med 11/30/20 10:00 Active 20 meq PO DAILY Remdesivir 100 mg Med 11/30/20 14:00 Active NaCl 0.9% 100Ml [Sodium Chloride 0.9% 100 ML BAG] 100 ml IV Q24H Remdesivir 200 mg Med 11/29/20 14:25 Discontinued NaCl 0.9% 250 ml [Sodium Chloride 0.9% 250 ML] 250 ml IV ONCE Remdesivir 200 mg Med 11/29/20 17:00 Active NaCl 0.9% 250 ml [Sodium Chloride 0.9% 250 ML] 250 ml IV ONCE Simvastatin 20Mg [Zocor 20Mg] Med 11/30/20 10:00 Active 20 mg PO DAILY Tamsulosin HCl 0.4 mg [Flomax 0.4 MG] Med 11/30/20 10:00 Active 0.4 mg PO DAILY Pulse Oximetry .continuos RT 11/29/20 16:11 Active Transfer Order Routine Transfer 11/29/20 Completed Code(s): J18.9 - PNEUMONIA, UNSPECIFIED ORGANISM
[2020-11-29 23:11] LABS: ALKALINE PHOSPHATASE 42 U/L (38-126); ANION GAP 13.5 MEQ/L (5-15); BLOOD UREA NITROGEN 35 mg/dL (9-20); CHLORIDE 102 mmol/L (98-107); Calcium 8.2 mg/dL (8.4-10.2); Carbon Dioxide 21 mmol/L (22-30); Creatinine 1 0.88 mg/dL (0.66-1.25); EST GLOMERULAR FILTRATION RATE > 60.0 ML/MIN; Glucose 144 mg/dL (74-106); Potassium 3.1 mmol/L (3.5-5.1); SGOT/AST 58 U/L (17-59); SGPT/ALT 25 U/L (0-50); SODIUM 134 mmol/L (137-145); Total Protein 5.4 g/dL (6.3-8.2)
[2020-11-29 23:23] LABS: MAGNESIUM 1.8 mg/dL (1.6-2.3); TROPONIN 0.017 ng/mL (0.000-0.034)
[2020-11-30] MEDS: Sodium Chloride 0.9% 1000 ML 1,000 ML IV SCH ×3 (02:17→19:36)
[2020-11-30 05:52] LABS: Absolute Neutrophil Ct (ANC) 6.02 (1.4-6.9); Basophil (Absolute #) 0 (0-0.4); Eosinophil (Absolute #) 0 (0-0.5); Hematocrit 38.9 % (42-50); Hemoglobin 13.1 gm/dl (12.5-18.0); Lymphocyte (Absolute #) 0.47 (1.0-4.6); Lymphocytes % 6.8 % (24.0-44.0); Mean Cell Volume 90.3 fl (78-100); Mean Corpuscular Hemoglobin 30.4 pg (26-32); Mean Corpuscular Hgb Concent. 33.7 g/dl (32-36); Mean Platelet Volume 11.1 fl (7.5-11.0); Monocyte (Absolute #) 0.38 (0.0-1.3); Monocytes % 5.5 % (0.0-12.0); Neutrophil % 87.7 % (36.0-66.0); Platelet Count 120 K/mm3 (150-450); Red Blood Count 4.31 M/mm3 (4.1-5.6); Red Cell Distribution Width 12.6 % (11.5-14.0); White Blood Count 6.9 K/mm3 (4.0-10.5)
[2020-11-30 06:01] LABS: PROTIME 11.8 SECONDS (9.4-12.5)
[2020-11-30 06:13] LABS: ALBUMIN 2.7 g/dL (3.5-5.0); ALKALINE PHOSPHATASE 37 U/L (38-126); ANION GAP 13.5 MEQ/L (5-15); BLOOD UREA NITROGEN 33 mg/dL (9-20); CHLORIDE 103 mmol/L (98-107); Calcium 7.7 mg/dL (8.4-10.2); Carbon Dioxide 20 mmol/L (22-30); Creatinine 1 0.81 mg/dL (0.66-1.25); EST GLOMERULAR FILTRATION RATE > 60.0 ML/MIN; Glucose 111 mg/dL (74-106); SGOT/AST 50 U/L (17-59); SGPT/ALT 23 U/L (0-50); SODIUM 134 mmol/L (137-145)
[2020-11-30 07:11] LABS: Potassium 2.9 mmol/L (3.5-5.1)
[2020-11-30 07:46] LABS: Slide Review 1 YES
[2020-11-30] MEDS: POTASSIUM CHLORIDE 20 mEq IN WATER 100ML 20 MEQ/100 ML BAG IV SCH ×2 (08:03→10:28)
[2020-11-30] MEDS: solu-MEDROL 40 MG IV SCH ×3 (08:18→21:11)
[2020-11-30] MEDS ORDERED: NON-FORMULARY ITEM (Chlorthalidone [Chlorthalidone] 25 MG) PO SCH (10:00)
[2020-11-30] MEDS: Zestril 5 MG PO SCH (10:20)
[2020-11-30] MEDS: ZOCOR 20MG PO SCH (10:20)
[2020-11-30] MEDS: hydroDIURIL 25 MG PO SCH (10:20)
[2020-11-30] MEDS: Klor Con 10 MEQ PO SCH (10:20)
[2020-11-30] MEDS: Flomax 0.4 MG PO SCH (10:21)
[2020-11-30] MEDS: PROTONIX 40 MG IV IV SCH (10:21)
--- NOTE | 2020-11-30 11:19 | PCM.NOTE ---
Date and Time: 11/30/20 1114 Subjective Assessment: Last night patient has multiple 3-4 seconds pauses on rhythm strip. Patient is asymptomatic. - Review of Systems Constitutional: No Fever, No Chills Eyes: No Symptoms Ears, Nose, & Throat: No Symptoms Respiratory: No Cough, No Short Of Breath Cardiac: No Chest Pain, No Edema, No Syncope Abdominal/Gastrointestinal: No Abdominal Pain, No Nausea, No Vomiting, No Diarrhea Genitourinary Symptoms: No Dysuria Musculoskeletal: No Back Pain, No Neck Pain Skin: No Rash Neurological: No Dizziness, No Focal Weakness, No Sensory Changes Psychological: No Symptoms Endocrine: No Symptoms Hematologic/Lymphatic: No Symptoms Immunological/Allergic: No Symptoms Objective Exam General Appearance: no apparent distress, alert Neurologic Exam: alert, oriented x 3, cooperative, normal mood/affect, nml cerebellar function, sensation nml, No motor deficits Skin Exam: normal color, warm, dry Eye Exam: PERRL, EOMI, eyes nml inspection Ears, Nose, Throat Exam: normal ENT inspection, pharynx normal, moist mucous membranes Neck Exam: normal inspection, non-tender, supple, full range of motion Respiratory Exam: normal breath sounds, lungs clear, No respiratory distress Cardiovascular Exam: regular rate/rhythm, bradycardia Gastrointestinal/Abdomen Exam: soft, No tenderness, No mass Extremity Exam: normal inspection, normal range of motion Back Exam: normal inspection, normal range of motion, No CVA tenderness, No vertebral tenderness Male Genitalia Exam: deferred Rectal Exam: deferred OBJECTIVE DATA Vital Signs: Vital Signs - 24 hr Temp Pulse Resp BP Pulse Ox 11/30/20 10:00 85 28 H 95 11/30/20 08:00 97.8 F 80 22 99/65 94 L 11/30/20 07:20 94 L 11/30/20 05:45 66 19 97 11/30/20 04:00 97.7 F 70 19 114/67 93 L 11/30/20 01:36 65 95 11/30/20 00:00 97.8 F 56 L 24 107/78 93 L 11/29/20 21:51 64 17 96 11/29/20 21:17 94 L 11/29/20 20:00 97.5 F 90 16 123/69 93 L 11/29/20 18:00 102 H 20 96 11/29/20 16:45 96.7 F 92 H 24 101/63 95 11/29/20 15:55 95 11/29/20 15:08 83 26 H 101/69 97 11/29/20 14:46 95 11/29/20 14:32 98 H 25 H 96/62 98 11/29/20 13:36 97.9 F 77 20 94/71 98 11/29/20 12:15 87 20 91/67 98 Pain Assessment - Last Documented Pain Intensity 4 Intake and Output: Intake & Output 11/27/20 11/28/20 11/29/20 11/30/20 11:59 11:59 11:59 11:59 Intake Total 3527 Output Total 400 Balance 3127 Weight 96.9 kg 97 kg Lab Results: Lab Results-Last 24 Hours 11/29/20 11/29/20 11/29/20 Range/Units 10:30 10:30 10:30 WBC (4.0-10.5) K/mm3 RBC (4.1-5.6) M/mm3 Hgb (12.5-18.0) gm/dl Hct (42-50) % MCV (78-100) fl MCH (26-32) pg MCHC (32-36) g/dl RDW (11.5-14.0) % Plt Count (150-450) K/mm3 MPV (7.5-11.0) fl Gran % (36.0-66.0) % Eos # (Auto) (0-0.5) Absolute Lymphs (auto) (1.0-4.6) Absolute Monos (auto) (0.0-1.3) Lymphocytes % (24.0-44.0) % Monocytes % (0.0-12.0) % Eosinophils % (0.00-5.0) % Basophils % (0.0-0.4) % Absolute Granulocytes (1.4-6.9) Basophils # (0-0.4) PT (9.4-12.5) SECONDS INR (0.8-3.0) D-Dimer (215-500) ng/mL Sodium 143 (137-145) mmol/L Potassium 3.6 (3.5-5.1) mmol/L Chloride 104 (98-107) mmol/L Carbon Dioxide 23 (22-30) mmol/L Anion Gap 19.5 H (5-15) MEQ/L BUN 36 H (9-20) mg/dL Creatinine 1.21 (0.66-1.25) mg/dL Estimated GFR > 60.0 ML/MIN Glucose 100 (74-106) mg/dL Lactic Acid (0.4-2.0) Calcium 9.6 (8.4-10.2) mg/dL Magnesium (1.6-2.3) mg/dL Total Bilirubin 1.40 H (0.2-1.3) mg/dL AST 82 H (17-59) U/L ALT 30 (0-50) U/L Alkaline Phosphatase 51 (38-126) U/L Creatine Kinase 1002 H (55-170) U/L Troponin I 0.021 (0.000-0.034) ng/mL NT-Pro-B Natriuret Pep 1210 (0-1800) pg/mL Serum Total Protein 6.7 (6.3-8.2) g/dL Albumin 4.0 (3.5-5.0) g/dL Urine Color (YELLOW) Urine Appearance (CLEAR) Urine pH (5-6) Ur Specific Arnot (1.005-1.025) Urine Protein (Negative) Urine Ketones (NEGATIVE) Urine Blood (0-5) Bucky/ul Urine Nitrite (NEGATIVE) Urine Bilirubin (NEGATIVE) Urine Urobilinogen (0-1) mg/dL Ur Leukocyte Esterase (NEGATIVE) Urine WBC (Auto) (0-5) /HPF Urine RBC (Auto) (0-2) /HPF U Epithel Cells (Auto) (FEW) /HPF Urine Bacteria (Auto) (NEGATIVE) /HPF Urine Mucus (Auto) (NEGATIVE) /HPF Urine Culture Reflexed (NO) Urine Glucose (NEGATIVE) mg/dL SARS-CoV-2 (PCR) (NEGATIVE) Slides for Path Review YES 11/29/20 11/29/20 11/29/20 Range/Units 12:35 12:43 13:02 WBC (4.0-10.5) K/mm3 RBC (4.1-5.6) M/mm3 Hgb (12.5-18.0) gm/dl Hct (42-50) % MCV (78-100) fl MCH (26-32) pg MCHC (32-36) g/dl RDW (11.5-14.0) % Plt Count (150-450) K/mm3 MPV (7.5-11.0) fl Gran % (36.0-66.0) % Eos # (Auto) (0-0.5) Absolute Lymphs (auto) (1.0-4.6) Absolute Monos (auto) (0.0-1.3) Lymphocytes % (24.0-44.0) % Monocytes % (0.0-12.0) % Eosinophils % (0.00-5.0) % Basophils % (0.0-0.4) % Absolute Granulocytes (1.4-6.9) Basophils # (0-0.4) PT (9.4-12.5) SECONDS INR (0.8-3.0) D-Dimer (215-500) ng/mL Sodium (137-145) mmol/L Potassium (3.5-5.1) mmol/L Chloride (98-107) mmol/L Carbon Dioxide (22-30) mmol/L Anion Gap (5-15) MEQ/L BUN (9-20) mg/dL Creatinine (0.66-1.25) mg/dL Estimated GFR ML/MIN Glucose (74-106) mg/dL Lactic Acid 1.7 (0.4-2.0) Calcium (8.4-10.2) mg/dL Magnesium (1.6-2.3) mg/dL Total Bilirubin (0.2-1.3) mg/dL AST (17-59) U/L ALT (0-50) U/L Alkaline Phosphatase (38-126) U/L Creatine Kinase (55-170) U/L Troponin I 0.020 (0.000-0.034) ng/mL NT-Pro-B Natriuret Pep (0-1800) pg/mL Serum Total Protein (6.3-8.2) g/dL Albumin (3.5-5.0) g/dL Urine Color MARYJANE (YELLOW) Urine Appearance SLIGHTLY CLOUDY (CLEAR) Urine pH 5.0 (5-6) Ur Specific Arnot 1.027 (1.005-1.025) Urine Protein 30 (Negative) Urine Ketones SMALL (NEGATIVE) Urine Blood NEGATIVE (0-5) Bucky/ul Urine Nitrite NEGATIVE (NEGATIVE) Urine Bilirubin NEGATIVE (NEGATIVE) Urine Urobilinogen 4 (0-1) mg/dL Ur Leukocyte Esterase NEGATIVE (NEGATIVE) Urine WBC (Auto) NONE (0-5) /HPF Urine RBC (Auto) NONE (0-2) /HPF U Epithel Cells (Auto) NONE (FEW) /HPF Urine Bacteria (Auto) NONE (NEGATIVE) /HPF Urine Mucus (Auto) SLIGHT (NEGATIVE) /HPF Urine Culture Reflexed NO (NO) Urine Glucose NEGATIVE (NEGATIVE) mg/dL SARS-CoV-2 (PCR) (NEGATIVE) Slides for Path Review 11/29/20 11/29/20 11/29/20 Range/Units 13:12 16:20 20:07 WBC (4.0-10.5) K/mm3 RBC (4.1-5.6) M/mm3 Hgb (12.5-18.0) gm/dl Hct (42-50) % MCV (78-100) fl MCH (26-32) pg MCHC (32-36) g/dl RDW (11.5-14.0) % Plt Count (150-450) K/mm3 MPV (7.5-11.0) fl Gran % (36.0-66.0) % Eos # (Auto) (0-0.5) Absolute Lymphs (auto) (1.0-4.6) Absolute Monos (auto) (0.0-1.3) Lymphocytes % (24.0-44.0) % Monocytes % (0.0-12.0) % Eosinophils % (0.00-5.0) % Basophils % (0.0-0.4) % Absolute Granulocytes (1.4-6.9) Basophils # (0-0.4) PT (9.4-12.5) SECONDS INR (0.8-3.0) D-Dimer (215-500) ng/mL Sodium (137-145) mmol/L Potassium (3.5-5.1) mmol/L Chloride (98-107) mmol/L Carbon Dioxide (22-30) mmol/L Anion Gap (5-15) MEQ/L BUN (9-20) mg/dL Creatinine (0.66-1.25) mg/dL Estimated GFR ML/MIN Glucose (74-106) mg/dL Lactic Acid (0.4-2.0) Calcium (8.4-10.2) mg/dL Magnesium (1.6-2.3) mg/dL Total Bilirubin (0.2-1.3) mg/dL AST (17-59) U/L ALT (0-50) U/L Alkaline Phosphatase (38-126) U/L Creatine Kinase (55-170) U/L Troponin I 0.018 0.016 (0.000-0.034) ng/mL NT-Pro-B Natriuret Pep (0-1800) pg/mL Serum Total Protein (6.3-8.2) g/dL Albumin (3.5-5.0) g/dL Urine Color (YELLOW) Urine Appearance (CLEAR) Urine pH (5-6) Ur Specific Arnot (1.005-1.025) Urine Protein (Negative) Urine Ketones (NEGATIVE) Urine Blood (0-5) Bucky/ul Urine Nitrite (NEGATIVE) Urine Bilirubin (NEGATIVE) Urine Urobilinogen (0-1) mg/dL Ur Leukocyte Esterase (NEGATIVE) Urine WBC (Auto) (0-5) /HPF Urine RBC (Auto) (0-2) /HPF U Epithel Cells (Auto) (FEW) /HPF Urine Bacteria (Auto) (NEGATIVE) /HPF Urine Mucus (Auto) (NEGATIVE) /HPF Urine Culture Reflexed (NO) Urine Glucose (NEGATIVE) mg/dL SARS-CoV-2 (PCR) POSITIVE A (NEGATIVE) Slides for Path Review 11/29/20 11/29/20 11/30/20 Range/Units 22:48 22:49 05:00 WBC (4.0-10.5) K/mm3 RBC (4.1-5.6) M/mm3 Hgb (12.5-18.0) gm/dl Hct (42-50) % MCV (78-100) fl MCH (26-32) pg MCHC (32-36) g/dl RDW (11.5-14.0) % Plt Count (150-450) K/mm3 MPV (7.5-11.0) fl Gran % (36.0-66.0) % Eos # (Auto) (0-0.5) Absolute Lymphs (auto) (1.0-4.6) Absolute Monos (auto) (0.0-1.3) Lymphocytes % (24.0-44.0) % Monocytes % (0.0-12.0) % Eosinophils % (0.00-5.0) % Basophils % (0.0-0.4) % Absolute Granulocytes (1.4-6.9) Basophils # (0-0.4) PT (9.4-12.5) SECONDS INR (0.8-3.0) D-Dimer (215-500) ng/mL Sodium 134 L D (137-145) mmol/L Potassium 3.1 L (3.5-5.1) mmol/L Chloride 102 (98-107) mmol/L Carbon Dioxide 21 L (22-30) mmol/L Anion Gap 13.5 (5-15) MEQ/L BUN 35 H (9-20) mg/dL Creatinine 0.88 (0.66-1.25) mg/dL Estimated GFR > 60.0 ML/MIN Glucose 144 H (74-106) mg/dL Lactic Acid (0.4-2.0) Calcium 8.2 L (8.4-10.2) mg/dL Magnesium 1.8 (1.6-2.3) mg/dL Total Bilirubin 0.60 (0.2-1.3) mg/dL AST 58 (17-59) U/L ALT 25 (0-50) U/L Alkaline Phosphatase 42 (38-126) U/L Creatine Kinase 370 H (55-170) U/L Troponin I 0.017 (0.000-0.034) ng/mL NT-Pro-B Natriuret Pep (0-1800) pg/mL Serum Total Protein 5.4 L (6.3-8.2) g/dL Albumin 3.0 L (3.5-5.0) g/dL Urine Color (YELLOW) Urine Appearance (CLEAR) Urine pH (5-6) Ur Specific Arnot (1.005-1.025) Urine Protein (Negative) Urine Ketones (NEGATIVE) Urine Blood (0-5) Bucky/ul Urine Nitrite (NEGATIVE) Urine Bilirubin (NEGATIVE) Urine Urobilinogen (0-1) mg/dL Ur Leukocyte Esterase (NEGATIVE) Urine WBC (Auto) (0-5) /HPF Urine RBC (Auto) (0-2) /HPF U Epithel Cells (Auto) (FEW) /HPF Urine Bacteria (Auto) (NEGATIVE) /HPF Urine Mucus (Auto) (NEGATIVE) /HPF Urine Culture Reflexed (NO) Urine Glucose (NEGATIVE) mg/dL SARS-CoV-2 (PCR) (NEGATIVE) Slides for Path Review 11/30/20 11/30/20 11/30/20 Range/Units 05:30 05:30 05:30 WBC 6.9 (4.0-10.5) K/mm3 RBC 4.31 (4.1-5.6) M/mm3 Hgb 13.1 (12.5-18.0) gm/dl Hct 38.9 L (42-50) % MCV 90.3 (78-100) fl MCH 30.4 (26-32) pg MCHC 33.7 (32-36) g/dl RDW 12.6 (11.5-14.0) % Plt Count 120 L (150-450) K/mm3 MPV 11.1 H (7.5-11.0) fl Gran % 87.7 H (36.0-66.0) % Eos # (Auto) 0 (0-0.5) Absolute Lymphs (auto) 0.47 L (1.0-4.6) Absolute Monos (auto) 0.38 (0.0-1.3) Lymphocytes % 6.8 L (24.0-44.0) % Monocytes % 5.5 (0.0-12.0) % Eosinophils % 0.0 (0.00-5.0) % Basophils % 0.0 (0.0-0.4) % Absolute Granulocytes 6.02 (1.4-6.9) Basophils # 0 (0-0.4) PT 11.8 (9.4-12.5) SECONDS INR 1.00 (0.8-3.0) D-Dimer 4902 H* (215-500) ng/mL Sodium 134 L (137-145) mmol/L Potassium 2.9 L* (3.5-5.1) mmol/L Chloride 103 (98-107) mmol/L Carbon Dioxide 20 L (22-30) mmol/L Anion Gap 13.5 (5-15) MEQ/L BUN 33 H (9-20) mg/dL Creatinine 0.81 (0.66-1.25) mg/dL Estimated GFR > 60.0 ML/MIN Glucose 111 H (74-106) mg/dL Lactic Acid (0.4-2.0) Calcium 7.7 L (8.4-10.2) mg/dL Magnesium (1.6-2.3) mg/dL Total Bilirubin 0.50 (0.2-1.3) mg/dL AST 50 (17-59) U/L ALT 23 (0-50) U/L Alkaline Phosphatase 37 L (38-126) U/L Creatine Kinase (55-170) U/L Troponin I (0.000-0.034) ng/mL NT-Pro-B Natriuret Pep (0-1800) pg/mL Serum Total Protein 5.0 L (6.3-8.2) g/dL Albumin 2.7 L (3.5-5.0) g/dL Urine Color (YELLOW) Urine Appearance (CLEAR) Urine pH (5-6) Ur Specific Arnot (1.005-1.025) Urine Protein (Negative) Urine Ketones (NEGATIVE) Urine Blood (0-5) Bucky/ul Urine Nitrite (NEGATIVE) Urine Bilirubin (NEGATIVE) Urine Urobilinogen (0-1) mg/dL Ur Leukocyte Esterase (NEGATIVE) Urine WBC (Auto) (0-5) /HPF Urine RBC (Auto) (0-2) /HPF U Epithel Cells (Auto) (FEW) /HPF Urine Bacteria (Auto) (NEGATIVE) /HPF Urine Mucus (Auto) (NEGATIVE) /HPF Urine Culture Reflexed (NO) Urine Glucose (NEGATIVE) mg/dL SARS-CoV-2 (PCR) (NEGATIVE) Slides for Path Review YES Radiology Exams: Radiology Procedures Category Date Time Status CHEST 1 VIEW (PORTABLE) Stat Exams 11/29/20 10:23 Completed Assessment/Plan (1) Rhabdomyolysis Current Visit: Yes Status: Acute Qualifiers: Rhabdomyolysis type: non-traumatic Qualified Code(s): M62.82 - Rhabdomyolysis Code(s): M62.82 - RHABDOMYOLYSIS (2) COVID-19 virus detected Current Visit: Yes Status: Acute Code(s): U07.1 - COVID-19 (3) Generalized weakness Current Visit: Yes Status: Acute Code(s): R53.1 - WEAKNESS (4) Pneumonia Current Visit: Yes Status: Acute Qualifiers: Pneumonia type: due to unspecified organism Laterality: left Lung location: unspecified part of lung Qualified Code(s): J18.9 - Pneumonia, unspecified organism Code(s): J18.9 - PNEUMONIA, UNSPECIFIED ORGANISM (5) Bradyarrhythmia Current Visit: Yes Status: Acute Assessment & Plan: Dr Guido office contacted, They are planning to get patient transferred for pacemaker placement. Code(s): I49.8 - OTHER SPECIFIED CARDIAC ARRHYTHMIAS
[2020-11-30] MEDS: REMDESIVIR 100 MG in Sodium Chloride 0.9% 100 ML BAG 100 ML IV SCH (13:56)
[2020-11-30] MEDS ORDERED: Dopamine 400 MG/D5W 250ML PREMIX 250 ML IV PRN (14:22)
--- NOTE | 2020-11-30 14:58 | XRAY ---
Indication: Right calf pain. Two-dimensional sonogram and color Doppler imaging of the major venous vessels of the right leg performed. Comparison: None No thrombus seen in the examined deep venous vessels of the right leg including greater saphenous vein. Veins demonstrate normal compressibility. Venous waveforms are normal with and without augmentation. Impression: Right leg negative for DVT.
[2020-11-30] MEDS: Dopamine 400 MG/D5W 250ML PREMIX 250 ML IV PRN (15:08)
[2020-11-30] MEDS ORDERED: solu-MEDROL 40 MG IV ONE (18:16)
[2020-12-01] MEDS: Dopamine 400 MG/D5W 250ML PREMIX 250 ML IV PRN (03:16)
[2020-12-01] MEDS: Sodium Chloride 0.9% 1000 ML 1,000 ML IV SCH ×4 (03:20→21:06)
[2020-12-01 05:17] LABS: Hematocrit 44.8 % (42-50); Hemoglobin 15.3 gm/dl (12.5-18.0); Mean Cell Volume 87.7 fl (78-100); Mean Corpuscular Hemoglobin 29.9 pg (26-32); Mean Corpuscular Hgb Concent. 34.2 g/dl (32-36); Platelet Count 162 K/mm3 (150-450); Red Blood Count 5.11 M/mm3 (4.1-5.6); Red Cell Distribution Width 12.6 % (11.5-14.0); White Blood Count 13.2 K/mm3 (4.0-10.5)
[2020-12-01 05:44] LABS: INR 1.01 (0.8-3.0); PROTIME 11.9 SECONDS (9.4-12.5)
[2020-12-01 06:05] LABS: ALBUMIN 2.9 g/dL (3.5-5.0); ALKALINE PHOSPHATASE 45 U/L (38-126); ANION GAP 12.4 MEQ/L (5-15); BLOOD UREA NITROGEN 23 mg/dL (9-20); CHLORIDE 105 mmol/L (98-107); CK-Creatinine Phosphokinase 144 U/L (55-170); Calcium 8.1 mg/dL (8.4-10.2); Carbon Dioxide 22 mmol/L (22-30); Creatinine 1 0.69 mg/dL (0.66-1.25); EST GLOMERULAR FILTRATION RATE > 60.0 ML/MIN; Glucose 181 mg/dL (74-106); Potassium 3.1 mmol/L (3.5-5.1); SGOT/AST 36 U/L (17-59); SGPT/ALT 24 U/L (0-50); SODIUM 136 mmol/L (137-145); Total Protein 5.5 g/dL (6.3-8.2)
[2020-12-01] MEDS: solu-MEDROL 40 MG IV SCH ×3 (06:09→21:06)
[2020-12-01 07:29] LABS: Lymphocytes 10 % (24-44); Neutrophils 90 % (36.-66.); Platelet Estimate NORMAL (NORMAL); Total Cells Counted 100; Toxic Granulation 1+
--- NOTE | 2020-12-01 08:16 | PCM.NOTE ---
Date and Time: 12/01/20812 Subjective Assessment: doing ok, awaiting pacemaker placement. - Review of Systems Constitutional: No Fever, No Chills Eyes: No Symptoms Ears, Nose, & Throat: No Symptoms Respiratory: No Cough, No Short Of Breath Cardiac: No Chest Pain, No Edema, No Syncope Abdominal/Gastrointestinal: No Abdominal Pain, No Nausea, No Vomiting, No Diarrhea Genitourinary Symptoms: No Dysuria Musculoskeletal: No Back Pain, No Neck Pain Skin: No Rash Neurological: No Dizziness, No Focal Weakness, No Sensory Changes Psychological: No Symptoms Endocrine: No Symptoms Hematologic/Lymphatic: No Symptoms Immunological/Allergic: No Symptoms Objective Exam General Appearance: no apparent distress, alert Neurologic Exam: alert, oriented x 3, cooperative, normal mood/affect, nml cerebellar function, sensation nml, No motor deficits Skin Exam: normal color, warm, dry Eye Exam: PERRL, EOMI, eyes nml inspection Ears, Nose, Throat Exam: normal ENT inspection, pharynx normal, moist mucous membranes Neck Exam: normal inspection, non-tender, supple, full range of motion Respiratory Exam: normal breath sounds, lungs clear, No respiratory distress Cardiovascular Exam: regular rate/rhythm, normal heart sounds Gastrointestinal/Abdomen Exam: soft, No tenderness, No mass Extremity Exam: normal inspection, normal range of motion Back Exam: normal inspection, normal range of motion, No CVA tenderness, No vertebral tenderness Male Genitalia Exam: deferred Rectal Exam: deferred OBJECTIVE DATA Vital Signs: Vital Signs - 24 hr Temp Pulse Resp BP BP Pulse Ox 12/01/20 07:20 76 128/82 12/01/20 07:08 75 21 125/80 12/01/20 07:00 76 21 128/82 94 L 12/01/20 06:38 93 L 12/01/20 06:10 89 19 120/77 12/01/20 06:08 89 19 120/77 12/01/20 05:47 89 19 120/77 95 12/01/20 05:16 72 18 120/68 12/01/20 05:04 72 18 120/68 12/01/20 05:00 72 18 120/68 94 L 12/01/20 04:16 77 18 139/75 12/01/20 04:04 77 18 139/75 12/01/20 04:00 96.7 F 77 18 139/75 12/01/20 03:08 77 20 129/82 12/01/20 03:00 77 20 129/82 96 12/01/20 02:03 85 20 118/64 12/01/20 01:58 85 20 118/64 97 12/01/20 01:04 82 18 120/82 12/01/20 01:00 82 18 120/82 95 12/01/20 00:02 76 20 110/69 12/01/20 00:00 98.0 F 76 20 110/69 94 L 11/30/20 23:03 72 20 113/77 11/30/20 23:00 72 20 113/77 11/30/20 22:08 62 18 105/70 11/30/20 22:00 62 18 105/70 96 11/30/20 21:08 84 20 121/69 11/30/20 21:00 84 20 121/69 11/30/20 20:08 64 24 116/69 11/30/20 20:00 97.4 F 64 24 116/69 97 11/30/20 19:21 97 11/30/20 19:08 83 20 130/67 11/30/20 19:00 83 130/67 11/30/20 18:08 80 22 120/66 11/30/20 18:00 78 20 121/66 96 11/30/20 17:08 78 18 109/65 11/30/20 17:00 89 22 109/65 93 L 11/30/20 16:08 72 20 121/85 11/30/20 16:00 70 16 121/85 92 L 11/30/20 14:00 87 20 90 L 11/30/20 11:53 96.1 F 90 20 101/67 96 11/30/20 10:00 85 28 H 95 Pain Assessment - Last Documented Pain Intensity 3 Intake and Output: Intake & Output 11/28/20 11/29/20 11/30/20 12/01/20 11:59 11:59 11:59 11:59 Intake Total 3527 5547 Output Total 400 4900 Balance 3127 647 Weight 96.9 kg 97 kg Lab Results: Lab Results-Last 24 Hours 11/30/20 11/30/20 12/01/20 Range/Units 05:00 15:19 05:00 WBC (4.0-10.5) K/mm3 RBC (4.1-5.6) M/mm3 Hgb (12.5-18.0) gm/dl Hct (42-50) % MCV (78-100) fl MCH (26-32) pg MCHC (32-36) g/dl RDW (11.5-14.0) % Plt Count (150-450) K/mm3 MPV (7.5-11.0) fl Segmented Neutrophils (36.-66.) % Lymphocytes (Manual) (24-44) % Toxic Granulation Platelet Estimate (NORMAL) RBC Morphology PT 11.9 (9.4-12.5) SECONDS INR 1.01 (0.8-3.0) D-Dimer 5307 H* (215-500) ng/mL Sodium (137-145) mmol/L Potassium 3.1 L (3.5-5.1) mmol/L Chloride (98-107) mmol/L Carbon Dioxide (22-30) mmol/L Anion Gap (5-15) MEQ/L BUN (9-20) mg/dL Creatinine (0.66-1.25) mg/dL Estimated GFR ML/MIN Glucose (74-106) mg/dL Calcium (8.4-10.2) mg/dL Total Bilirubin (0.2-1.3) mg/dL AST (17-59) U/L ALT (0-50) U/L Alkaline Phosphatase (38-126) U/L Creatine Kinase 370 H (55-170) U/L Serum Total Protein (6.3-8.2) g/dL Albumin (3.5-5.0) g/dL 12/01/20 12/01/20 Range/Units 05:00 05:00 WBC 13.2 H (4.0-10.5) K/mm3 RBC 5.11 (4.1-5.6) M/mm3 Hgb 15.3 (12.5-18.0) gm/dl Hct 44.8 (42-50) % MCV 87.7 (78-100) fl MCH 29.9 (26-32) pg MCHC 34.2 (32-36) g/dl RDW 12.6 (11.5-14.0) % Plt Count 162 D (150-450) K/mm3 MPV 11.0 (7.5-11.0) fl Segmented Neutrophils 90 H (36.-66.) % Lymphocytes (Manual) 10 L (24-44) % Toxic Granulation 1+ Platelet Estimate NORMAL (NORMAL) RBC Morphology NORMAL PT (9.4-12.5) SECONDS INR (0.8-3.0) D-Dimer (215-500) ng/mL Sodium 136 L (137-145) mmol/L Potassium 3.1 L (3.5-5.1) mmol/L Chloride 105 (98-107) mmol/L Carbon Dioxide 22 (22-30) mmol/L Anion Gap 12.4 (5-15) MEQ/L BUN 23 H (9-20) mg/dL Creatinine 0.69 (0.66-1.25) mg/dL Estimated GFR > 60.0 ML/MIN Glucose 181 H (74-106) mg/dL Calcium 8.1 L (8.4-10.2) mg/dL Total Bilirubin 0.70 (0.2-1.3) mg/dL AST 36 (17-59) U/L ALT 24 (0-50) U/L Alkaline Phosphatase 45 (38-126) U/L Creatine Kinase 144 (55-170) U/L Serum Total Protein 5.5 L (6.3-8.2) g/dL Albumin 2.9 L (3.5-5.0) g/dL Radiology Exams: Radiology Procedures Category Date Time Status CHEST 1 VIEW (PORTABLE) Stat Exams 11/29/20 10:23 Completed VENOUS UNILAT/LIMITED EXTREMIT [US] Routine Exams 11/30/20 14:44 Completed Multi-Disciplinary Progress Notes: Multi-Disciplinary Progress Notes 11/30/20 11:50 Case Management Note by Alexia Foster PATIENT GETTING EXTERNALLY PACED AT THIS TIME- WILL DEFER CASE MANAGEMENT ASSESS UNTIL CLOSER TO TIME OF DC Initialized on 11/30/20 11:50 - END OF NOTE Assessment/Plan (1) Bradyarrhythmia Current Visit: Yes Status: Acute Assessment & Plan: on external pacemaker, on dopamine 5 mcg/min, while waiting for transfer for pacemaker placement. (All surrounding area hospitals where pacemaker placement available are full with COVID related ilness patient) Code(s): I49.8 - OTHER SPECIFIED CARDIAC ARRHYTHMIAS (2) Rhabdomyolysis Current Visit: Yes Status: Resolved Qualifiers: Rhabdomyolysis type: non-traumatic Qualified Code(s): M62.82 - Rhabdomyolysis Code(s): M62.82 - RHABDOMYOLYSIS (3) COVID-19 virus detected Current Visit: Yes Status: Acute Code(s): U07.1 - COVID-19 (4) Generalized weakness Current Visit: Yes Status: Acute Code(s): R53.1 - WEAKNESS (5) Pneumonia Current Visit: Yes Status: Resolved Qualifiers: Pneumonia type: due to unspecified organism Laterality: left Lung location: unspecified part of lung Qualified Code(s): J18.9 - Pneumonia, unspecified organism Code(s): J18.9 - PNEUMONIA, UNSPECIFIED ORGANISM
[2020-12-01] MEDS: Klor Con 10 MEQ PO SCH (08:58)
[2020-12-01] MEDS: Flomax 0.4 MG PO SCH (08:58)
[2020-12-01] MEDS: hydroDIURIL 25 MG PO SCH (08:59)
[2020-12-01] MEDS: PROTONIX 40 MG IV IV SCH (08:59)
[2020-12-01] MEDS: ZOCOR 20MG PO SCH (08:59)
[2020-12-01] MEDS: Zestril 5 MG PO SCH (08:59)
[2020-12-01] MEDS: ROCEPHIN 1 Gm-D5w 50 ml Bag** 1 G/50 ML IVPB IV SCH (13:13)
[2020-12-01] MEDS: Zithromax 500 MG/ 250 ML NaCl Premix 500 MG/250 ML IVPB IV SCH (14:01)
[2020-12-01] MEDS: REMDESIVIR 100 MG in Sodium Chloride 0.9% 100 ML BAG 100 ML IV SCH (14:55)
[2020-12-01] MEDS: TYLENOL 325 MG PO PRN (21:07)
[2020-12-02] MEDS: Dopamine 400 MG/D5W 250ML PREMIX 250 ML IV PRN ×2 (05:03→18:12)
[2020-12-02] MEDS: solu-MEDROL 40 MG IV SCH ×3 (05:05→21:09)
[2020-12-02 05:20] LABS: Absolute Neutrophil Ct (ANC) 13.43 (1.4-6.9); Basophil (Absolute #) 0 (0-0.4); Eosinophil (Absolute #) 0 (0-0.5); Hemoglobin 15.8 gm/dl (12.5-18.0); Lymphocyte (Absolute #) 0.58 (1.0-4.6); Mean Cell Volume 88.6 fl (78-100); Mean Corpuscular Hemoglobin 30.4 pg (26-32); Mean Corpuscular Hgb Concent. 34.3 g/dl (32-36); Monocyte (Absolute #) 0.65 (0.0-1.3); Monocytes % 4.4 % (0.0-12.0); Neutrophil % 91.6 % (36.0-66.0); Platelet Count 154 K/mm3 (150-450); Red Blood Count 5.19 M/mm3 (4.1-5.6); Red Cell Distribution Width 12.4 % (11.5-14.0); White Blood Count 14.7 K/mm3 (4.0-10.5)
[2020-12-02 05:36] LABS: ALBUMIN 2.7 g/dL (3.5-5.0); ALKALINE PHOSPHATASE 43 U/L (38-126); ANION GAP 11.8 MEQ/L (5-15); BLOOD UREA NITROGEN 22 mg/dL (9-20); CHLORIDE 104 mmol/L (98-107); Calcium 7.6 mg/dL (8.4-10.2); Carbon Dioxide 20 mmol/L (22-30); Creatinine 1 0.63 mg/dL (0.66-1.25); EST GLOMERULAR FILTRATION RATE > 60.0 ML/MIN; Glucose 162 mg/dL (74-106); Potassium 3.1 mmol/L (3.5-5.1); SGOT/AST 35 U/L (17-59); SGPT/ALT 22 U/L (0-50); SODIUM 133 mmol/L (137-145)
[2020-12-02] MEDS: Sodium Chloride 0.9% 1000 ML 1,000 ML IV SCH ×2 (09:57→20:41)
[2020-12-02] MEDS: Klor Con 10 MEQ PO SCH (10:50)
[2020-12-02] MEDS: PROTONIX 40 MG IV IV SCH (10:50)
[2020-12-02] MEDS: ROCEPHIN 1 Gm-D5w 50 ml Bag** 1 G/50 ML IVPB IV SCH (10:50)
[2020-12-02] MEDS: ENOXAPARIN SODIUM SQ SCH (10:50)
[2020-12-02] MEDS: Flomax 0.4 MG PO SCH (10:50)
[2020-12-02] MEDS: ZOCOR 20MG PO SCH (10:51)
[2020-12-02] MEDS: Zithromax 500 MG/ 250 ML NaCl Premix 500 MG/250 ML IVPB IV SCH (11:29)
[2020-12-02] MEDS: REMDESIVIR 100 MG in Sodium Chloride 0.9% 100 ML BAG 100 ML IV SCH (15:33)
[2020-12-03] MEDS: Sodium Chloride 0.9% 1000 ML 1,000 ML IV SCH (03:41)
[2020-12-03] MEDS: solu-MEDROL 40 MG IV SCH ×3 (05:38→21:00)
[2020-12-03 06:38] LABS: Hematocrit 47.1 % (42-50); Hemoglobin 16.2 gm/dl (12.5-18.0); Mean Cell Volume 87.7 fl (78-100); Mean Corpuscular Hemoglobin 30.2 pg (26-32); Mean Corpuscular Hgb Concent. 34.4 g/dl (32-36); Mean Platelet Volume 10.7 fl (7.5-11.0); Platelet Count 166 K/mm3 (150-450); Red Blood Count 5.37 M/mm3 (4.1-5.6); Red Cell Distribution Width 12.5 % (11.5-14.0); White Blood Count 13.1 K/mm3 (4.0-10.5)
[2020-12-03 06:42] LABS: INR 1.05 (0.8-3.0); PROTIME 12.4 SECONDS (9.4-12.5)
[2020-12-03 06:52] LABS: ALBUMIN 2.5 g/dL (3.5-5.0); ALKALINE PHOSPHATASE 41 U/L (38-126); ANION GAP 9.9 MEQ/L (5-15); BLOOD UREA NITROGEN 20 mg/dL (9-20); CHLORIDE 105 mmol/L (98-107); Calcium 7.5 mg/dL (8.4-10.2); Carbon Dioxide 23 mmol/L (22-30); Creatinine 1 0.63 mg/dL (0.66-1.25); EST GLOMERULAR FILTRATION RATE > 60.0 ML/MIN; Glucose 155 mg/dL (74-106); Potassium 3.2 mmol/L (3.5-5.1); SGOT/AST 25 U/L (17-59); SGPT/ALT 22 U/L (0-50); SODIUM 135 mmol/L (137-145); Total Protein 4.8 g/dL (6.3-8.2)
[2020-12-03] MEDS: Dopamine 400 MG/D5W 250ML PREMIX 250 ML IV PRN ×2 (07:38→21:00)
[2020-12-03 09:16] LABS: Lymphocytes 5 % (24-44); Monocyte 2 % (0.0-12.0); Neutrophils 93 % (36.-66.); Platelet Estimate NORMAL (NORMAL); Total Cells Counted 100
[2020-12-03] MEDS ORDERED: Sodium Chloride 0.9% 1000 ML 1,000 ML IV SCH (09:30)
[2020-12-03] MEDS ORDERED: Klor Con 10 MEQ PO SCH (09:50)
[2020-12-03] MEDS: PROTONIX 40 MG IV IV SCH (10:00)
[2020-12-03] MEDS: ENOXAPARIN SODIUM SQ SCH (10:00)
[2020-12-03] MEDS: Klor Con 10 MEQ PO SCH ×2 (10:00→21:00)
[2020-12-03] MEDS: ZOCOR 20MG PO SCH (10:00)
[2020-12-03] MEDS: Flomax 0.4 MG PO SCH (10:00)
[2020-12-03] MEDS ORDERED: SENOKOT 8.6 MG PO PRN (10:48)
[2020-12-03] MEDS: REMDESIVIR 100 MG in Sodium Chloride 0.9% 100 ML BAG 100 ML IV SCH (13:47)
[2020-12-03] MEDS ORDERED: Coumadin 5 MG PO SCH (18:00)
[2020-12-03] MEDS: TYLENOL 325 MG PO PRN (19:51)
[2020-12-04 00:41] VITALS: PULSE 71
[2020-12-04 02:17] VITALS: BP 137/67; O2SAT 95
== END 2020-12-04 02:42 | DRG 557 ==
LOC: ED 10:07 → MED SURG 15:30 → OBSVTOIN 18:30
PROVIDERS: ADMIT General Practice; ATTEND General Practice
DX: M62.82 Rhabdomyolysis (principal); U07.1 COVID-19; J18.9 Pneumonia, unspecified organism; R53.1 Weakness; W07.XXXA Fall from chair, initial encounter; I49.8 Other specified cardiac arrhythmias; I10 Essential (primary) hypertension; Z20.822 Contact with and (suspected) exposure to COVID-19; R29.6 Repeated falls; Z79.899 Other long term (current) drug therapy
CPT/HCPCS: 36415; 71045; 80053; 81001; 82550; 83605; 83735; 83880; 84132; 84484; 85025; 85379; 85610; 87040; 93005; 93041; 93268; 93971; 94762; 96360; 96365; 96374; 99285; U0003; J0456; J0696; J1100; J1265; J1650; J2920; J3480; A9270-GY